=== PATIENT | female | born 1975 ===

== ENCOUNTER → 2017-12-20 | Outpatient (CLI) | payer OTHER ==
[~2017-12-20] VITALS: Ht 152.4 cm; Wt 79.4 kg
[~2017-12-20] MED LIST: ATRIPLA TABLET1 TAB PO; HEMATRON PO
== END | disposition home or self-care (01) ==
LOC: PPHC 17:14
DX: Z00.8 Encounter for other general examination (principal)

== ENCOUNTER 2018-01-15 10:11 | Outpatient (CLI) | payer OTHER | END 2018-01-15 10:26 | disposition home or self-care (01) | LOC: LAB 10:11 | DX: E53.8 Deficiency of other specified B group vitamins (principal); D70.8 Other neutropenia; D69.6 Thrombocytopenia, unspecified; D53.1 Other megaloblastic anemias, not elsewhere classified; D46.A Refractory cytopenia with multilineage dysplasia; D68.0 Von Willebrand disease ==

== ENCOUNTER 2018-01-24 13:08 | Outpatient (CLI) | payer OTHER | END 2018-01-24 13:18 | disposition home or self-care (01) | LOC: SONOGRAMA 13:08 → MAMO-SONO 13:30 | DX: N64.89 Other specified disorders of breast (principal) ==

== ENCOUNTER → 2018-03-21 17:04 | Outpatient (CLI) | payer OTHER | END | disposition home or self-care (01) | LOC: LAB 17:04 | DX: D70.8 Other neutropenia (principal); D69.6 Thrombocytopenia, unspecified; D53.1 Other megaloblastic anemias, not elsewhere classified; B20 Human immunodeficiency virus [HIV] disease ==

== ENCOUNTER 2018-06-10 10:49 | Outpatient (CLI) | payer OTHER | END 2018-06-10 11:11 | disposition home or self-care (01) | LOC: SONOGRAMA 10:49 | DX: N60.11 Diffuse cystic mastopathy of right breast (principal); N60.12 Diffuse cystic mastopathy of left breast; N63.14 Unspecified lump in the right breast, lower inner quadrant ==

== ENCOUNTER → 2018-08-03 09:33 | Outpatient (CLI) | payer OTHER | END | disposition home or self-care (01) | LOC: LAB 09:33 | DX: M20.41 Other hammer toe(s) (acquired), right foot (principal); M20.42 Other hammer toe(s) (acquired), left foot; L92.3 Foreign body granuloma of the skin and subcutaneous tissue; D68.8 Other specified coagulation defects ==